=== PATIENT | male | born 1960 | race Caucasian/White ===

== ENCOUNTER 2018-06-16 14:31 | Emergency (ER) | payer BC, OTHER ==
[2018-06-16 14:51] VITALS: BP 157/78
--- NOTE | 2018-06-19 19:38 | UC ---
Throat Pain/Nasal Lyle HPI - HPI Summary HPI Summary: Pt presents to with progressive sore throat x 4 days. Pt states has painful swallowing and feels it is getting "harder" to swallow solid foods. No drooling. Pt states when lying on back, sx seem worse tactile temp. Pt called pcp and was started on penicillin earlier this week. No ear pain, sinus pain. no change in voice. Pt does smoke cigarettes. Pt's medications reviewed this visit - History of Current Complaint Chief Complaint: UCGeneralIllness Stated Complaint: ST,R[place],RIGHT SIDE HEAD SWOLLEN,EAR ACHE Time Seen by Provider: 06/16/18 14:53 Hx Obtained From: Patient Pain Intensity: 8 Pain Scale Used: 0-10 Numeric - Allergies/Home Medications Allergies/Adverse Reactions: Allergies Allergy/AdvReac Type Severity Reaction Status Date / Time No Known Allergies Allergy Verified 06/16/18 14:48 Home Medications: Home Medications Neteglanide 06/16/18 [History] Penicillin VK 500 MG TAB(NF) [Penicillin VK 500 mg Tab] 500 mg PO QID 06/16/18 [ History Confirmed 06/16/18] PMH/Surg Hx/FS Hx/Imm Hx Previously Healthy: Yes - Surgical History Surgical History: Yes Surgery Procedure, Year, and Place: ROTATOR CUFF DECOMPRESSION [place] [facility] [place] Family History Known Family History: Positive: Cardiac Disease, Hypertension, Diabetes, Non- Contributory - Social History Occupation: Employed Full-time Lives: With Family Alcohol Use: Occasionally Substance Use Type: None Smoking Status (MU): Heavy Every Day Tobacco Smoker Review of Systems All Other Systems Reviewed And Are Negative: Yes Constitutional: Positive: Fever - tactile ENT: Positive: Sore Throat, Other - difficulty swallowing Respiratory: Positive: Negative Cardiovascular: Positive: Negative Gastrointestinal: Positive: Negative Physical Exam - Summary Physical Exam Summary: Vital Signs Reviewed: Yes A+Ox3, no distress, speaking without difficulty, handling, secretions Eyes: Conjunctiva Clear, NOEMÍ. EOM intact and full ENT: Hearing grossly normal TM x 2 clear, mmoist, pt with large area of fullness right tonsillar with erythema with uvula devliated to left, no exudate, Neck: Positive: Supple Respiratory: Positive: No respiratory distress, No accessory muscle use + CTA throughout no w/r Cardiovascular: RRR nl s1, s2 no m/r CBT <2 sec abd soft + BS nt/nd no guarding, no distension Musculoskeletal Exam: LAUREN x 4 without difficulty Strength Intact, ROM Intact Neurological: Positive: Alert, + sensation throughout Psychological: Positive: Normal Response To Family Skin: Positive: no rash, no ecchymosis Triage Information Reviewed: Yes Vital Signs: Initial Vital Signs Temp 99.9 F 06/16/18 14:46 Pulse 93 06/16/18 14:46 Resp 16 06/16/18 14:46 BP 157/78 06/16/18 14:46 Pulse Ox 98 06/16/18 14:46 Throat Pain/Nasal Course/Dx - Course Course Of Treatment: Pt with progressive sore throat x 4 days with increased difficulty swallowing. No resp compromise. VSS. On exam - pt with marked right peritonisllar fullness with uvular deviation. Concern for peritonsillar abscess. Differential includes mass, aneurysm. I contacted Dr. Grace's office - answering service confirmed closed for day. Will send pt to ED - pt's preference [facility]. Spoke with ED provider - okay to send patient. Pt comfortable and in agreement with plan. NPO. Pt's with elevated BP - pt in discomfort - Differential Dx/Diagnosis Provider Diagnosis: Peritonsillar abscess Discharge - Sign-Out/Discharge Documenting (check all that apply): Patient Departure All imaging exams completed and their final reports reviewed: No Studies - Discharge Plan Condition: Stable Disposition: HOME-RECOMMEND TO ED Patient Education Materials: Peritonsillar Abscess (ED) Referrals: Adam Rodriguez MD [Primary Care Provider] - Additional Instructions: The doctor that evaluated you today thinks that you need additional testing that can be completed the emergency department. It is recommended that you go directly to emergency department for further evaluation. This evaluation may include blood work or imaging. This testing will be directed and decided by the provider that evaluate you at the emergency department. Do not eat or drink anything before you are further evaluated. If pain becomes worse, you feel lightheaded, you have uncontrolled vomiting, or you have any other concerns while you are being driven to emergency department as recommended to pullover and contact 911. - Billing Disposition and Condition Condition: STABLE Disposition: Home-Recommend to ED
== END 2018-06-16 15:14 | disposition home health service (06) ==
LOC: UCCORT 14:31
DX: J36 Peritonsillar abscess (principal); F17.200 Nicotine dependence, unspecified, uncomplicated
CPT/HCPCS: 99212; G0463

== ENCOUNTER 2019-04-15 19:16 | Emergency (ER) | payer BC ==
[2019-04-15 19:39] VITALS: BP 114/61
--- NOTE | 2019-04-15 20:23 | UC ---
Knee Pain HPI - HPI Summary HPI Summary: 58-year-old male presents with complaints of 1-1/2 week history of left knee pain and swelling. No known injury. Denies any previous injury. Complains of pain to the medial and lateral aspect of the knee joint. Describes pain as a constant aching. Worsens with flexion of the knee and after sitting for an extended period of time. Improves is after he is up and ambulating for a period of time. He has taken couple doses of aspirin for the pain with little improvement. Last dose was yesterday evening. Patient does report history of tick bite accidentally 2 months ago. Denies fever, chills, rash, erythema, ecchymosis, numbness, or tingling. - History of Current Complaint Chief Complaint: UCLowerExtremity Stated Complaint: LEFT KNEE INJURY Time Seen by Provider: 04/15/19 19:47 Hx Obtained From: Patient Pain Intensity: 8 - Allergies/Home Medications Allergies/Adverse Reactions: Allergies Allergy/AdvReac Type Severity Reaction Status Date / Time No Known Allergies Allergy Verified 04/15/19 19:39 Home Medications: Home Medications Lispro 45 units BID 04/15/19 [History Confirmed 04/15/19] PMH/Surg Hx/FS Hx/Imm Hx Previously Healthy: Yes Endocrine History: Diabetes, Dyslipidemia Cardiovascular History: Hypertension - Surgical History Surgical History: Yes Surgery Procedure, Year, and Place: ROTATOR CUFF DECOMPRESSION RIGHT SHOULDER- 2007 [facility] [place]. right shoulder surgery again - Family History Known Family History: Positive: Cardiac Disease, Hypertension, Diabetes, Non- Contributory - Social History Occupation: Employed Full-time Lives: With Family Alcohol Use: Occasionally Substance Use Type: None Smoking Status (MU): Former Smoker When Did the Patient Quit Smoking/Using Tobacco: 06/06/18 Review of Systems All Other Systems Reviewed And Are Negative: Yes Constitutional: Negative: Fever, Chills Skin: Negative: Rash, Other - erythema Respiratory: Positive: Negative Cardiovascular: Positive: Negative Gastrointestinal: Positive: Negative Genitourinary: Positive: Negative Motor: Negative: Weakness Neurovascular: Negative: Decreased Sensation Musculoskeletal: Positive: Arthralgia, Decreased ROM, Edema. Negative: Calf Tenderness Neurological: Positive: Negative Is Patient Immunocompromised?: No Physical Exam - Summary Physical Exam Summary: GENERAL APPEARANCE: Well developed, well nourished, alert and cooperative, and appears to be in no acute distress. CARDIAC: Normal S1 and S2. No S3, S4 or murmurs. Rhythm is regular. There is no peripheral edema, cyanosis or pallor. Extremities are warm and well perfused. Capillary refill is less than 2 seconds. Peripheral pulses intact. LUNGS: Clear to auscultation without rales, rhonchi, wheezing or diminished breath sounds. ABDOMEN: Positive bowel sounds. Soft, nondistended, nontender. No guarding or rebound. No masses or hepatosplenomegally. MUSKULOSKELETAL: Normal muscular development. Limping gait. EXTREMITIES: Tenderness to the medial and posterior knee as well as over the patella with mild-moderate edema of the knee without erythema or increased warmth. Flexion of the knee mildly reduced due to the edema. Circulation and sensation intact. SKIN: Skin normal color, texture and turgor with no lesions or eruptions. Triage Information Reviewed: Yes Vital Signs: Initial Vital Signs Temp 97.8 F 04/15/19 19:35 Pulse 65 04/15/19 19:35 Resp 15 04/15/19 19:35 BP 114/61 04/15/19 19:35 Pulse Ox 99 04/15/19 19:35 Vital Signs Reviewed: Yes Diagnostics - Radiology No standard instances Radiology Interpretation Completed By: ED Physician - No acute osseous injury. Positive joint effusion. Knee Pain Course/Dx - Course Course Of Treatment: 58-year-old male presents with complaints of 1-1/2 week history of left knee pain and swelling. No known injury. Denies any previous injury. Complains of pain to the medial and lateral aspect of the knee joint. Describes pain as a constant aching. Worsens with flexion of the knee and after sitting for an extended period of time. Improves is after he is up and ambulating for a period of time. He has taken couple doses of aspirin for the pain with little improvement. Last dose was yesterday evening. Patient does report history of tick bite accidentally 2 months ago. Denies fever, chills, rash, erythema, ecchymosis, numbness, or tingling. Afebrile. Vital signs stable. Patient had tenderness to the medial and posterior knee as well as over the patella with mild-moderate edema of the knee without erythema or increased warmth. Flexion of the knee mildly reduced due to the edema. Circulation and sensation intact. X-ray of the knees showed no acute osseous injury although no effusion of the knee was noted. Reviewed results with the patient. Discussed with him that with the history of tick bite that would recommend testing at this time and treatment as indicated otherwise have recommended conservative treatment for left knee pain including naproxen 500 mg 1 tablet twice a day 5 days then every 12 hours as needed and RICE. He was placed in an Javan wrap by the RN. He is to follow-up with orthopedic surgery in 7 days if symptoms do not improve. Anticipatory guidance and warning symptoms were reviewed with the patient. Verbalizes understanding and agrees of care. - Differential Dx/Diagnosis Differential Diagnosis/HQI/PQRI: Bursitis, Gout, Internal Derangement Of Knee, Infection, Patellofemoral Syndrome, Sprain, Strain Provider Diagnosis: Left knee pain Discharge ED - Sign-Out/Discharge Documenting (check all that apply): Patient Departure All imaging exams completed and their final reports reviewed: No - Discharge Plan Condition: Stable Disposition: HOME Prescriptions: Naproxen [Naproxen 500 mg tab] 500 mg PO Q12HR #30 tablet Patient Education Materials: Knee Pain (ED) Referrals: Adam Rodriguez MD [Primary Care Provider] - Allen Valera MD [Medical Doctor] - Additional Instructions: The x-ray performed in the clinic today showed no evidence of a fracture. There was evidence of an effusion (collection of fluid in the joint) suggestive of an inflammatory process in the knee. With your history of a Tick bite we will test you for Lyme disease and treat if indicated. Rest the knee as much as possible. Apply ice to the affected area for 15-20 minutes at least 4 times a day to help with the pain and swelling. Use an JAVAN wrap or compression sleeve to help with the swelling. Elevate the leg to help reduce swelling. Take naproxen 500 mg 1 tab every 12 hours with food for the next 5 days then 1 tab every 12 hours as needed for pain. Follow up with orthopedic surgery in 7 days if symptoms do not improve. Call for appointment. Seek immediate medical attention if you have severe pain not managed with pain medication, you are unable to walk or bear any weight, develop numbness or tingling in the leg, foot, or toes, or have any worsening of symptoms. - Billing Disposition and Condition Condition: STABLE Disposition: Home
[2019-04-15] MEDS ORDERED: Naproxen TAB* 250 MG PO ONE (20:24)
--- NOTE | 2019-04-16 09:41 | UC ---
- Progress Note Progress Note: Patient Name: RADHA GRAVES Medical Record#: [id number] Ordering Physician: Faustino Noyola NP Acct.#: [id number] : 1960 Age: 58 Sex: M Location: [facility] Exam Date: 04/15/192006 ADM Status: DEP ER Order Information: KNEE LEFT 4+ VWS Accession Number: [id number] CPT: 37622 INDICATION: Left knee pain. TECHNIQUE: 4 views of the left knee were obtained. FINDINGS: There are vascular calcifications. Small knee effusion is present. The bone mineralization is within normal limits. No fracture is identified. Anatomic alignment is maintained. There is only mild osteoporosis arthropathy in the medial tibiofemoral compartment. IMPRESSION: 1. SMALL KNEE EFFUSION. 2. MILD OSTEOARTHROPATHY OF THE MEDIAL TIBIOFEMORAL COMPARTMENT. <Electronically signed by Booker Montalvo MD in OV> 04/16/19743 Dictated By: Booker Montalvo MD Dictated Date/Time: 04/16/19742 Transcribed Date/Time: 04/16/19742 Copy to: CC:Faustino Noyola NP; Adam Rodriguez MD; Cristofer Espana MD Imaging - [facility] [address] [address] ph ([phone]) ph ([phone]) ph ([phone]) This report is only to be considered final once signed by the Provider(s) as displayed in the "<Electronically Signed by >" field (s). Absence of a signature indicates the report is in a draft status and still needs to be finalized. In the event this document was created by someone other than the signing Provider, the individual initiating the document will be listed in the "Entered by:" or "Dictated by:" woodward. 1 of 1 Course/Dx - Diagnoses Provider Diagnoses: Left knee pain Discharge ED - Sign-Out/Discharge Documenting (check all that apply): Post-Discharge Follow Up All imaging exams completed and their final reports reviewed: Yes - Discharge Plan Condition: Stable Disposition: HOME Prescriptions: Naproxen [Naproxen 500 mg tab] 500 mg PO Q12HR #30 tablet Patient Education Materials: Knee Pain (ED) Referrals: Allen Valera MD [Medical Doctor] - Adam Rodriguez MD [Primary Care Provider] - Additional Instructions: The x-ray performed in the clinic today showed no evidence of a fracture. There was evidence of an effusion (collection of fluid in the joint) suggestive of an inflammatory process in the knee. With your history of a Tick bite we will test you for Lyme disease and treat if indicated. Rest the knee as much as possible. Apply ice to the affected area for 15-20 minutes at least 4 times a day to help with the pain and swelling. Use an RANI wrap or compression sleeve to help with the swelling. Elevate the leg to help reduce swelling. Take naproxen 500 mg 1 tab every 12 hours with food for the next 5 days then 1 tab every 12 hours as needed for pain. Follow up with orthopedic surgery in 7 days if symptoms do not improve. Call for appointment. Seek immediate medical attention if you have severe pain not managed with pain medication, you are unable to walk or bear any weight, develop numbness or tingling in the leg, foot, or toes, or have any worsening of symptoms. - Billing Disposition and Condition Condition: STABLE Disposition: Home
== END 2019-04-15 20:44 | disposition home or self-care (01) ==
LOC: UCCORT 19:16
DX: M25.462 Effusion, left knee (principal); M17.12 Unilateral primary osteoarthritis, left knee; M25.562 Pain in left knee; E11.9 Type 2 diabetes mellitus without complications; I10 Essential (primary) hypertension; Z79.4 Long term (current) use of insulin; Z87.891 Personal history of nicotine dependence
CPT/HCPCS: 36415; 86618; 99212; A9270-GY; G0463

== ENCOUNTER 2019-07-05 06:15 | Day surgery (SDC) | payer BC ==
--- NOTE | 2019-06-20 11:36 | HP ---
HISTORY AND PHYSICAL: DATE OF ADMISSION/SURGERY: 07/05/19 DATE OF OFFICE VISIT: 06/11/19 SURGEON: Lamar Villa MD * (DICTATED BY YAQUELIN ALEJANDRO) PROCEDURE: Left knee arthroscopy with partial meniscectomy, possible chondroplasty, possible synovectomy, and possible plica excision. CHIEF COMPLAINT: Left knee pain. HISTORY OF PRESENT ILLNESS: Mr. Weaver is a 58-year-old gentleman with continued complaints of left knee pain. An MRI confirms a meniscus tear. He has elected to proceed with surgery. PAST MEDICAL HISTORY: Hypertension, diabetes, and high cholesterol. CURRENT MEDICATIONS: 1. Jardiance 25 mg a day. 2. Atorvastatin 10 mg a day. 3. Aspirin 81 mg a day. 4. Levemir. 5. Metformin 850 mg twice a day. 6. Lisinopril 2.5 mg a day. ALLERGIES: No known drug allergies. FAMILY HISTORY: Cancer. SOCIAL HISTORY: He is a 58-year-old gentleman. He lives with his spouse. He quit smoking approximately a year ago. He denies using alcohol. REVIEW OF SYSTEMS: A complete 14-point review of systems was reviewed with the patient. It was positive for diabetes. He denies history of DVT, PE, hepatitis , HIV, or anesthesia problems. PHYSICAL EXAMINATION GENERAL: He is well developed, well nourished, in no acute distress. VITAL SIGNS: He stands 72 inches tall, weighs 203 pounds. His blood pressure is 110/72, his heart rate is 72. HEENT: Normocephalic, atraumatic. NECK: Supple. No palpable lymph nodes. PULMONARY: The lungs are clear to auscultation bilaterally. CARDIO: Regular rate and rhythm. Strong S1, S2. ABDOMEN: Soft, nontender, nondistended. NEUROLOGICAL: He is alert and oriented x3. MUSCULOSKELETAL: Left lower extremity: The skin is intact. There are no open wounds or abrasions. There is moderate effusion of the left knee joint. Positive Jhonathan's, positive Apley's, negative Charlotte's. He is able to dorsiflex and plantarflex. He has 2+ dorsalis pedis pulse and intact sensation. ASSESSMENT AND PLAN: Mr. Weaver is a 58-year-old gentleman with complaints of left knee pain and MRI confirms a meniscus tear. He has elected to proceed with a left knee arthroscopy with partial meniscectomy, possible chondroplasty, possible synovectomy and possible plica excision. The surgery is scheduled for 06/21/[address] Villa discussed the risks and benefits of the surgery at today's visit and all of his questions were answered. He will follow up with Dr. Villa 2 weeks after the surgery. YAQUELIN ALEJANDRO [id number]/CPS #: [id number] MTDD
[~2019-07-05 06:15] MED LIST: Acetaminophen TAB* 325 MG PO ONE; Buffered Lidocaine 1% SYRIN* 1 ML/SYRINGE INTRADERM ONE; Lactated Ringers 1000 ML Bag* 1,000 ML IV SCH
[2019-07-05] MEDS ORDERED: Acetaminophen TAB* 325 MG ONE (06:26)
[2019-07-05] MEDS ORDERED: ceFAZolin 2 GM PREMIX in ORs 2 GM/50 ML BAG ONE (06:26)
[2019-07-05] MEDS ORDERED: EPINEPHRINE 1 MG/ML 1 ML VIAL ONE ×2 (06:38→07:28)
[2019-07-05] MEDS ORDERED: Bupivacaine 0.5%* 50 ML MDV VIAL ONE (06:40)
[2019-07-05] MEDS ORDERED: methylPREDNISolone ACETATE 80* 80 MG/ML 1 ML VIAL ONE (06:40)
[2019-07-05] MEDS ORDERED: Midazolam* 1 MG/ML 2 ML VIAL (2 MG) ONE (07:08)
[2019-07-05] MEDS ORDERED: fentaNYL* 50 MCG/ML 2 ML VIAL (100 MCG VIAL) ONE (07:09)
[2019-07-05] MEDS ORDERED: Lidocaine 2% PF * 5 ML VIAL ONE (07:10)
[2019-07-05] MEDS ORDERED: Propofol* 10 MG/ML 20 ML BTL ONE (07:10)
[2019-07-05] MEDS ORDERED: ROPIVACAINE 5 MG/ML 30 ML BTL (0.5%) ONE (07:20)
[2019-07-05] MEDS ORDERED: HYDROmorphone INJ1* 1 MG/ML SYRINGE ONE ×2 (07:39→09:06)
[2019-07-05] MEDS ORDERED: Naloxone* 0.4 MG/ML 1 ML VIAL IV PRN (07:57)
[2019-07-05] MEDS ORDERED: PROCHLORPERAZINE INJ 5 MG/ML 2 ML VIAL IV PRN (07:57)
[2019-07-05] MEDS ORDERED: HYDROmorphone INJ1* 1 MG/ML SYRINGE IV PRN (07:57)
[2019-07-05] MEDS ORDERED: oxyCODONE TAB* 5 MG TAB PO PRN (07:57)
[2019-07-05] MEDS ORDERED: diPHENhydraMINE IV* 50 MG/ML 1 ml VIAL (BENADRYL) IV PRN (08:04)
[2019-07-05] MEDS ORDERED: Ondansetron INJ* 2 MG/ML VIAL ONE (08:35)
[2019-07-05] MEDS ORDERED: Ketorolac INJ* 30 MG/ML 1 ML VIAL ONE (08:36)
[2019-07-05] MEDS ORDERED: oxyCODONE TAB* 5 MG TAB ONE (09:06)
[2019-07-05 10:31] VITALS: BP 136/76
--- NOTE | 2019-07-06 02:49 | OP ---
DATE OF OPERATION: 07/05/19 [facility] DATE OF : 64 ATTENDING SURGEON: Lamar Villa MD. GOLD PLATER: YAQUELIN De La Cruz. Red Anderson was needed throughout the procedure for preparation of the leg, wound retraction, manipulation of the knee, and wound closure. ANESTHESIOLOGIST: Dr. Geronimo. ANESTHESIA: General. PRE-OP DIAGNOSIS: Left knee medial meniscal tear with [id number] osteoarthritis. POST-OP DIAGNOSIS: Left knee medial meniscal tear with anterior synovitis and advanced osteoarthritis. OPERATIVE PROCEDURE: Left knee arthroscopy with partial medial meniscectomy, medial chondroplasty and anterior synovectomy. COMPLICATIONS: None. ESTIMATED BLOOD LOSS: Less than 25 cc. BRIEF HISTORY/INDICATIONS: Mr. Weaver is a 58-year-old gentleman with acute onset of medial joint line pain and mechanical symptoms. His radiograph showed minimal degenerative changes. MRI confirmed a medial meniscal tear. He failed conservative treatment. Due to continued pain and decreased quality of life, the patient elected to undergo a left knee arthroscopy with partial meniscectomy. Informed consent was obtained from the patient. He understood the risks of surgery included, but were not limited to, bleeding, infection, damage to nearby structures, continued pain, need for further surgery, retear of the meniscus, progression of arthritis, stroke, heart attack, blood clot, and . He wished to proceed. INTRAOPERATIVE FINDINGS: Intraoperatively, the patient was found to have a complex tear with both radial and linear components involving the posterior 50% of the medial meniscus mainly in the red-white zone. He had a significant amount of anterior synovitis and inflamed tissue. The soft tissue did impinge on patellofemoral joint compartment with range of motion. The patient was found to have severe end-stage arthritis in the medial compartment and moderate arthritis in the patellofemoral compartment. These were grade 3 and 4 Outerbridge cartilage in the medial compartment along a substantial amount of the weightbearing portion of the medial femoral condyle. Greater 2 and 3 Outerbridge cartilage change in the patellofemoral component. DESCRIPTION OF PROCEDURE: Mr. Weaver was identified in the preanesthesia unit. His left lower extremity was marked as the correct operative site. Informed consent was signed and placed in the chart. The patient was taken to the operating room and placed under anesthesia without difficulty. The left lower extremity was prepped and draped in the usual sterile fashion. Preop time -out was made to correctly identify the patient, side, and site. Appropriate perioperative antibiotics were given within 1 hour of incision. A standard anterolateral portal incision was made using a 10 blade and carried down to the capsule. Trocar was introduced. As soon as the light and water sources were turned on, there was immediate visualization of the suprapatellar pouch. A tour of the knee joint was performed. Suprapatellar pouch showed no obvious abnormality. The joint space did have small pieces of cartilage floating throughout the joint. Patellofemoral compartment had grade 2 and 3 Outerbridge cartilage changes. Medial gutters showed no loose body or plica. The anterior joint line had a significant amount of synovitis. Medial compartment showed a complex tear involving the posterior 50% of the medial meniscus. Medial femoral condyle had exposed subchondral bone and large cartilage flapping. These were grade 3 and 4 Outerbridge cartilage changes. ACL and PCL appeared to be intact. The knee was placed in a [id number] position. The lateral compartment had minimal degenerative changes and no obvious meniscal tear. The lateral gutter showed no abnormalities. Under direct visualization, a medial portal incision was made. Radiofrequency ablation wand and shaver were used to perform anterior synovectomy. Any inflamed soft tissue that impinged with range of motion was carefully and conservatively excised. Next, a straight biter was used to perform partial medial meniscectomy. The meniscal tear was carefully excised. Further probing of the medial meniscus showed no additional tears. This was mainly in the white -red zone. Shaver and radiofrequency ablation wand were used to further smooth the edges of the medial meniscus. Next, the radiofrequency ablation wand was used to smooth any cartilage flaps along the medial femoral condyle. The knee was copiously irrigated with sterile saline. All instruments were removed. The incisions were closed using 3-0 nylon suture. Sterile Xeroform, 4 x 4s, and Webril were used to cover the incision. Javan wrap and cold pack were placed over this. The patient's anesthesia was reversed without difficulty. He was taken to the PACU in stable condition. Intended weightbearing will be weightbearing as tolerated. Intended DVT prophylaxis will be aspirin. The patient will follow up in 2 weeks' time for suture removal. He will do activities as tolerated and weight bearing as tolerated. [id number]/[facility] #: [id number] [facility]
== END 2019-07-05 11:16 | disposition home or self-care (01) ==
LOC: OR 06:15
PROVIDERS: ATTEND Orthopaedic Surgery Adult Reconstructive Orthopaedic Surgery
DX: S83.242A Other tear of medial meniscus, current injury, left knee, initial encounter (principal); M65.862 Other synovitis and tenosynovitis, left lower leg; M17.12 Unilateral primary osteoarthritis, left knee; I10 Essential (primary) hypertension; E11.9 Type 2 diabetes mellitus without complications; Z79.84 Long term (current) use of oral hypoglycemic drugs; E78.00 Pure hypercholesterolemia, unspecified; Z87.891 Personal history of nicotine dependence; X58.XXXA Exposure to other specified factors, initial encounter; Y92.9 Unspecified place or not applicable
CPT/HCPCS: A9270-GY; J0690; J1040; J1170; J1885; J2250; J2405; J2704; J2795; J3010; J3490

== ENCOUNTER 2021-02-05 05:46 | Inpatient (IN) ==
[~2021-02-05 05:46] MED LIST changes: -Acetaminophen TAB* 325 MG PO ONE; +Buffered Lidocaine 1% SYRIN 1 ml INTRADERM ONE; -Buffered Lidocaine 1% SYRIN* 1 ML/SYRINGE INTRADERM ONE; +DiMENhydriNATE IV 50 mg/ml 1 ml VIAL IV PUSH ONE; -Lactated Ringers 1000 ML Bag* 1,000 ML IV SCH; +Lactated Ringers 1000 ml BAG 1,000 ML IV SCH
[2021-02-05] MEDS ORDERED: DiMENhydriNATE IV 50 mg/ml 1 ml VIAL ONE (06:14)
[2021-02-05] MEDS ORDERED: Buffered Lidocaine 1% SYRIN 1 ml INTRADERM ONE (06:14)
[2021-02-05] MEDS ORDERED: ceFAZolin 2 GM in NS PREMIX 2 GM/100 ML BAG IVPB ONE (06:14)
[2021-02-05] MEDS ORDERED: fentaNYL 100 mcg/2 ml 50 MCG/ML VIAL ONE ×2 (07:02→09:16)
[2021-02-05] MEDS ORDERED: Midazolam 2 mg/2 ml VIAL 1 mg/ml 2 ml VIAL (2 mg) ONE ×2 (07:02→08:05)
[2021-02-05] MEDS ORDERED: Dexamethasone IV 4 MG/ML VIAL 1 ml VIAL ONE ×2 (07:02→08:22)
[2021-02-05] MEDS ORDERED: Bupivacaine 0.5% SDV PF 30ML VIAL ONE (07:02)
[2021-02-05] MEDS ORDERED: Ondansetron 4 mg VIAL 2 MG/ML 2 ml VIAL IV PRN (07:54)
[2021-02-05] MEDS ORDERED: Ondansetron ODT 4 mg TAB 4 MG TAB PO PRN (07:54)
[2021-02-05] MEDS ORDERED: diPHENhydraMINE IV 50 MG/ML 1 ml VIAL (BENADRYL) IV PRN (07:54)
[2021-02-05] MEDS ORDERED: Lactulose 30 ml UDC PO PRN (07:54)
[2021-02-05] MEDS ORDERED: Morphine 2 MG/ML SYRINGE IV PRN (07:54)
[2021-02-05] MEDS ORDERED: diPHENhydraMINE 25 mg TAB PO PRN (07:54)
[2021-02-05] MEDS ORDERED: Magnesium Hydroxide LIQ 30 ML UDC PO PRN (07:54)
[2021-02-05] MEDS ORDERED: Ketamine HCL 50 mg/ml 10 ml VIAL (500 MG) ONE (08:21)
[2021-02-05] MEDS ORDERED: Lidocaine 2% PF 5 ML VIAL ONE (08:21)
[2021-02-05] MEDS ORDERED: Propofol 10 MG/ML 20 ML BTL ONE ×3 (08:21→09:28)
[2021-02-05] MEDS ORDERED: Ondansetron 4 mg VIAL 2 MG/ML 2 ml VIAL ONE (08:22)
[2021-02-05] MEDS ORDERED: Ropivacaine 5 MG/ML 20 ML VIAL 0.5% (100 MG) ONE (08:52)
[2021-02-05] MEDS ORDERED: Empagliflozin (NF) 25 MG TABLET PO SCH (09:00)
[2021-02-05] MEDS ORDERED: INSULIN DETEMIR SUBCUT SCH (09:00)
[2021-02-05] MEDS ORDERED: [UNRECOGNIZED DRUG - OTHER] SUBCUT SCH (09:00)
[2021-02-05] MEDS ORDERED: EPHEDrine (Pressors) 50 MG/ML VIAL ONE (09:35)
[2021-02-05] MEDS: Magnesium Hydroxide LIQ 30 ML UDC PO SCH ×2 (11:26→20:50)
[2021-02-05] MEDS: Vitamin THERAPEUTIC TAB PO SCH (11:27)
[2021-02-05] MEDS: Aspirin EC 81 mg TAB.EC (enteric coated) PO SCH (11:27)
[2021-02-05] MEDS: Lactated Ringers 1000 ml BAG 1,000 ML IV SCH ×2 (12:23→22:31)
[2021-02-05] MEDS: ceFAZolin 1 GM ADVAN 1 GM in NS 0.9% 50 ML 50 ML IVPB SCH ×2 (15:32→23:30)
[2021-02-05] MEDS ORDERED: Dextrose 50% Syringe 50 ml 25 GM/50 ML SYRINGE IV PUSH PRN (17:42)
[2021-02-05] MEDS: Insulin GLARGINE 100 un/ml 10 ml VIAL SUBCUT SCH (20:57)
[2021-02-06 06:46] LABS: Hematocrit 37 % (42-52); Hemoglobin 12.7 g/dL (14.0-18.0); Mean Platelet Volume 8.5 fL (7.4-10.4); Platelet Count 164 10^3/uL (150-450)
[2021-02-06 07:08] LABS: Calcium 8.5 mg/dL (8.6-10.3); EGFR African American 144.9 (>60); EGFR Non-African American 119.8 (>60)
[2021-02-06] MEDS: Vitamin THERAPEUTIC TAB PO SCH (08:31)
[2021-02-06] MEDS: Aspirin EC 81 mg TAB.EC (enteric coated) PO SCH (08:31)
[2021-02-06] MEDS: ceFAZolin 1 GM ADVAN 1 GM in NS 0.9% 50 ML 50 ML IVPB SCH (08:31)
[2021-02-06] MEDS: Insulin GLARGINE 100 un/ml 10 ml VIAL SUBCUT SCH (08:32)
[2021-02-06] MEDS: Magnesium Hydroxide LIQ 30 ML UDC PO SCH (08:32)
[2021-02-06 11:48] VITALS: BP 128/66
== END 2021-02-06 14:05 | disposition home or self-care (01) | DRG 302 ==
LOC: AA 05:46 → SSU 07:54
PROVIDERS: ADMIT Orthopaedic Surgery Adult Reconstructive Orthopaedic Surgery; ATTEND Orthopaedic Surgery Adult Reconstructive Orthopaedic Surgery

== ENCOUNTER 2022-03-26 06:15 | Inpatient (IN) ==
[~2022-03-26 06:15] MED LIST changes: +Dexamethasone IV 4 MG/ML VIAL 1 ml VIAL IV SLOW PU ONE; -DiMENhydriNATE IV 50 mg/ml 1 ml VIAL IV PUSH ONE; +Famotidine IV 10 MG/ML 2 ml VIAL (20 mg) IV ONE
[2022-03-26] MEDS ORDERED: Ropivacaine 5 MG/ML 20 ML VIAL 0.5% (100 MG) ONE (06:25)
[2022-03-26] MEDS ORDERED: Dexamethasone IV 4 MG/ML VIAL 1 ml VIAL ONE ×2 (07:23→07:24)
[2022-03-26] MEDS ORDERED: Famotidine IV 10 MG/ML 2 ml VIAL (20 mg) ONE (07:23)
[2022-03-26] MEDS ORDERED: ceFAZolin 2 GM in NS PREMIX 2 GM/100 ML BAG IVPB ONE (07:23)
[2022-03-26] MEDS ORDERED: Phenylephrine IV 10 MG/ML 1 ml VIAL ONE (07:31)
[2022-03-26] MEDS ORDERED: Lidocaine 2% PF 5 ML VIAL ONE (07:31)
[2022-03-26] MEDS ORDERED: Propofol 10 MG/ML 20 ML BTL ONE ×4 (07:31→10:50)
[2022-03-26] MEDS ORDERED: Midazolam 2 mg/2 ml VIAL 1 mg/ml 2 ml VIAL (2 mg) ONE (07:59)
[2022-03-26] MEDS ORDERED: fentaNYL 100 mcg/2 ml 50 MCG/ML VIAL ONE (07:59)
[2022-03-26] MEDS ORDERED: ROPIVACAINE 5 MG/ML 30 ML BTL (0.5%) ONE (08:01)
[2022-03-26] MEDS ORDERED: fentaNYL 100 mcg/2 ml 50 MCG/ML VIAL IV PRN (09:18)
[2022-03-26] MEDS ORDERED: Prochlorperazine 5 mg/ml 2 ml VIAL (10 mg) IV PRN (09:18)
[2022-03-26] MEDS ORDERED: Naloxone 0.4 mg VIAL 0.4 mg/ml 1 ml VIAL IV PRN (09:18)
[2022-03-26] MEDS ORDERED: Ondansetron 4 mg VIAL 2 MG/ML 2 ml VIAL ONE (09:22)
[2022-03-26] MEDS ORDERED: Ondansetron 4 mg VIAL 2 MG/ML 2 ml VIAL IV PRN (11:15)
[2022-03-26] MEDS ORDERED: Ondansetron ODT 4 mg TAB 4 MG TAB PO PRN (11:15)
[2022-03-26] MEDS ORDERED: Lactulose 30 ml UDC PO PRN (11:15)
[2022-03-26] MEDS ORDERED: Magnesium Hydroxide LIQ 30 ML UDC PO PRN (11:15)
[2022-03-26] MEDS ORDERED: Morphine 2 MG/ML SYRINGE IV PRN (11:15)
[2022-03-26] MEDS: Lactated Ringers 1000 ml BAG 1,000 ML IV SCH (13:48)
[2022-03-26] MEDS: ceFAZolin 1 GM ADVAN 1 GM in NS 0.9% 50 ML 50 ML IVPB SCH (16:44)
[2022-03-26] MEDS: Magnesium Hydroxide LIQ 30 ML UDC PO SCH (21:18)
[2022-03-27] MEDS: ceFAZolin 1 GM ADVAN 1 GM in NS 0.9% 50 ML 50 ML IVPB SCH ×2 (01:25→09:00)
[2022-03-27] MEDS: Lactated Ringers 1000 ml BAG 1,000 ML IV SCH (01:27)
[2022-03-27 06:17] LABS: Hematocrit 40 % (42-52); Hemoglobin 13.1 g/dL (14.0-18.0); Mean Platelet Volume 7.8 fL (7.4-10.4); Platelet Count 212 10^3/uL (150-450)
[2022-03-27 06:38] LABS: Calcium 8.8 mg/dL (8.6-10.3); Potassium 4.4 mmol/L (3.5-5.0); eGFR CKD-EPI 101.9 (>60)
[2022-03-27 07:45] VITALS: BP 128/73
[2022-03-27] MEDS ORDERED: Dextrose 50% Syringe 50 ml 25 GM/50 ML SYRINGE IV PUSH PRN (07:47)
[2022-03-27] MEDS ORDERED: Vitamin THERAPEUTIC TAB PO SCH (09:00)
[2022-03-27] MEDS ORDERED: Insulin GLARGINE 100 un/ml 10 ml VIAL SUBCUT SCH (09:00)
[2022-03-27] MEDS ORDERED: Empagliflozin 25 MG TAB PO SCH (09:00)
[2022-03-27] MEDS: Magnesium Hydroxide LIQ 30 ML UDC PO SCH (09:04)
== END 2022-03-27 11:20 | disposition home or self-care (01) | DRG 302 ==
LOC: AA 06:15 → SSU 13:45
PROVIDERS: ADMIT Orthopaedic Surgery Adult Reconstructive Orthopaedic Surgery; ATTEND Orthopaedic Surgery Adult Reconstructive Orthopaedic Surgery